=== PATIENT | female | born 1950 | race Caucasian/White ===

== ENCOUNTER 2021-03-07 11:06 | Day surgery (SDC) | payer OTHER ==
[2021-03-07] MEDS ORDERED: ACETAMINOPHEN 325 MG TABLET ONE (12:11)
[2021-03-07] MEDS ORDERED: NA CHLORIDE 0.9% 250 ML ONE ×2 (12:11→15:10)
[2021-03-07] MEDS ORDERED: DIPHENHYDRAMINE 50 MG/ML VIAL ONE (12:11)
[2021-03-07 13:10] VITALS: BMI 24.5
[2021-03-07 16:19] VITALS: TEMP 98.6
[2021-03-07 18:14] LABS: Hematocrit 26.3 % (36.0-45.0)
[2021-03-07 18:18] VITALS: BP 108/57; O2SAT 99
== END 2021-03-07 18:00 | disposition home or self-care (01) ==
LOC: LAB 11:06 → DS 18:00
PROVIDERS: ATTEND Family Medicine
DX: D64.9 Anemia, unspecified (principal)
CPT/HCPCS: 36415; 86900; 86850; 86901; 85018; 85014; 36430; J1200; P9016 ×2; J7050 ×2

== ENCOUNTER 2021-07-26 08:41 | Inpatient (IN) | payer OTHER ==
[2021-07-26 09:26] LABS: Absolute Lymphocytes (CBC) 1.2 K/uL (0.7-4.9); Hematocrit 16.5 % (36.0-45.0); Lymphocytes % 28.1 % (15.3-44.8); RBC Red Blood Cell Count 2.81 M/uL (3.86-4.86)
[2021-07-26] MEDS ORDERED: PANTOPRAZOLE INJ 80 MG in NA CHLORIDE 0.9% 250 ML IV ONE (09:30)
[2021-07-26] MEDS ORDERED: PANTOPRAZOLE 40 MG INJ ONE (09:38)
[2021-07-26 09:39] LABS: ALT/SGPT 22 U/L (12-78); AST/SGOT 12 U/L (15-37); Albumin 3.7 g/dL (3.4-5.0); Alkaline Phosphatase 85 U/L (45-117); BUN Blood Urea Nitrogen 20 mg/dL (7-18); Bicarbonate 27 mmol/L (21-32); Bilirubin Direct < 0.1 mg/dL (0-0.2); Bilirubin Total 0.2 mg/dL (0.2-1.0); Glucose Level 204 mg/dL (74-106); Lipase 225 U/L (73-393); Potassium 4.2 mmol/L (3.5-5.1); Protein, Total 7.7 g/dL (6.4-8.2); Sodium Level 139 mmol/L (136-145)
--- NOTE | 2021-07-26 10:06 | ER ---
Nurse's Notes [facility] Name: Gretchen Orourke Age: 70 yrs Sex: Female : 1950 Arrival Date: 07/26/2021 Time: 08:53 Bed 18 Private MD: Diagnosis: Other specified anemias Presentation: 07/26 08:55 Chief complaint: EMS states: ANEMIA NOTED ON ROUTINE LABS, PT HAS NO COMPLAINT. bp Coronavirus screen: At this time, the client does not indicate any symptoms associated with coronavirus-19. Ebola Screen: No symptoms or risks identified at this time. Initial Sepsis Screen: Does the patient meet any 2 criteria? No. Patient's initial sepsis screen is negative. Does the patient have a suspected source of infection? No. Patient's initial sepsis screen is negative. Risk Assessment: Do you want to hurt yourself or someone else? Patient reports no desire to harm self or others. Onset of symptoms is unknown. 08:55 Method Of Arrival: EMS: [facility] bp 08:55 Acuity: MARILU 3 bp Triage Assessment: 08:56 General: Appears in no apparent distress. comfortable, Behavior is cooperative, bp anxious. Pain: Denies pain. EENT: PALE CONJUNCTIVA. Neuro: No deficits noted. Cardiovascular: No deficits noted. Respiratory: No deficits noted. GI: No signs and/or symptoms were reported involving the gastrointestinal system. Abdomen is non-distended, Abd is soft and non tender X 4 quads. : No signs and/or symptoms were reported regarding the genitourinary system. Derm: Skin is pale. Musculoskeletal: No deficits noted. Historical: - Allergies: 08:56 No Known Allergies; bp - PMHx: 08:56 Hypertensive disorder; Diabetes mellitus; Gout; bp - Immunization history:: Adult Immunizations unknown. - Social history:: Smoking status: Patient denies any tobacco usage or history of. - Family history:: not pertinent. Screenin:59 Abuse screen: Denies threats or abuse. Denies injuries from another. Nutritional bp screening: No deficits noted. Tuberculosis screening: No symptoms or risk factors identified. Fall Risk None identified. Assessment: 08:58 General: SEE TRIAGE NOTE. bp 10:50 Reassessment: No changes from previously documented assessment. Patient and/or family bp updated on plan of care and expected duration. Pain level reassessed. 1ST PRBC REQUESTED. 11:00 Reassessment: No changes from previously documented assessment. Patient and/or family ss7 updated on plan of care and expected duration. Pain level reassessed. PRBC UNIT 1 STARTED. 12:00 Reassessment: PRBC INFUSING. ss7 13:00 Reassessment: PRBC INFUSING. ss7 13:30 Reassessment: No changes from previously documented assessment. Patient and/or family ss7 updated on plan of care and expected duration. Pain level reassessed. 1ST UNIT PRBC COMPLETED. 15:01 Reassessment: REPORT TO 2ND FLOOR FOR RM 223. bp Vital Signs: 08:55 BP 117 / 54; Pulse 81; Resp 12; Temp 98.4; Pulse Ox 100% ; Weight 49.9 kg; Height 5 ft. mb7 0 in. (152.40 cm); 10:00 BP 98 / 46; Pulse 79; Resp 17; Pulse Ox 98% ; bp 11:00 BP 118 / 56; Pulse 76; Resp 20; Temp 98.4; Pulse Ox 100% ; ss7 12:00 BP 113 / 71; Pulse 75; Resp 20; Temp 98.3; Pulse Ox 100% ; ss7 13:00 BP 113 / 54; Pulse 73; Resp 18; Temp 98.4; Pulse Ox 98% ; ss7 13:30 BP 114 / 53; Pulse 71; Resp 18; Temp 98.1; Pulse Ox 99% ; ss7 08:55 Body Mass Index 21.48 (49.90 kg, 152.40 cm) 7 ED Course: 08:53 Patient arrived in ED. bp 08:55 Zack Anguiano, KELLY is Primary Nurse. bp 08:55 Stephan Francis MD is Attending Physician. ma2 08:56 Triage completed. bp 08:56 Arm band placed on. bp 08:59 Patient has correct armband on for positive identification. Bed in low position. Call bp light in reach. Side rails up X2. 09:00 Warm blanket given. telemetry monitor on. Pulse ox on. NIBP on. 5 09:00 Initial lab(s) drawn, by me, sent to lab. Inserted saline lock: 20 gauge in right 5 antecubital area, using aseptic technique. Blood collected. 09:41 Bb Add On Sent. [facility] 09:41 Type And Screen Sent. 5 09:42 Basic Metabolic Panel Sent. 5 09:42 Hepatic Function Sent. 5 09:42 Lipase Sent. 5 09:42 SARS-COV-2 RT PCR (Document "Date of Onset" if Symptomatic) Sent. 5 09:42 EKG done, by ED staff, reviewed by Stephan Francis MD COVID swab sent to lab. T\\T\\S mh5 collected, blood band applied to patient. 10:05 Satya Rowley is Hospitalizing Provider. nm2 10:33 Hospitalizing Provider role handed off by Satya Rowley [facility] 10:33 Stephan Carlos MD is Hospitalizing Provider. ma2 11:20 Inserted saline lock: 20 gauge in left forearm, using aseptic technique. 7 13:43 Inserted saline lock: 20 gauge in right forearm, using aseptic technique. PT ACCIDENTLY ss7 PULLED OUT RAC INT. RFA 20g RESTARTED. IV discontinued, intact. 15:02 No provider procedures requiring assistance completed. bp Administered Medications: 09:15 Drug: Pantoprazole 40 mg Route: IVP; Site: right antecubital; bp 12:33 Follow up: Response: No adverse reaction bp 09:30 Drug: Pantoprazole 8 mg/hr Route: IV; Rate: 25 ml/hr; Site: right antecubital; bp 15:03 Follow up: IV Status: Infusion continued upon admission bp Outcome: 10:05 Decision to Hospitalize by Provider. ma 15:01 Admitted to Med/surg accompanied by tech, via wheelchair, room 223, Report called to bp STERLING 15:01 Condition: stable 15:01 Instructed on the need for admit. 15:12 Patient left the ED. bp Signatures: Florence Tolliver 5 Zack Anguiano, RN RN bp Stephan Francis MD MD ma2 Breneman, Mary mb7 Maria Antonia Bragg, KELLY RN ss7 Corrections: (The following items were deleted from the chart) 13:59 13:58 Reassessment: No changes from previously documented assessment. Patient and/or ss7 family updated on plan of care and expected duration. Pain level reassessed. PRBC UNIT 1 STARTED ss7
--- NOTE | 2021-07-26 10:07 | EDPHYS ---
Physician Documentation [facility] Name: Gretchen Orourke Age: 70 yrs Sex: Female : 1950 Arrival Date: 07/26/2021 Time: 08:53 Bed 18 Private MD: ED Physician Stephan Francis HPI: 07/26 09:06 This 70 yrs old Female presents to ER via EMS with complaints of Abnormal Lab ma2 Results. 09:06 Patient is a resident of correction, history of dementia hypertension diabetes, not ma2 on blood thinners, she was undergoing routine lab work yesterday, was found to have hemoglobin 4.1, patient states she does not have any symptoms, no active bleeding.. Historical: - Allergies: 08:56 No Known Allergies; bp - PMHx: 08:56 Hypertensive disorder; Diabetes mellitus; Gout; bp - Immunization history:: Adult Immunizations unknown. - Social history:: Smoking status: Patient denies any tobacco usage or history of. - Family history:: not pertinent. ROS: 09:06 Constitutional: Negative for fever, chills, and weight loss. ma2 09:06 All other systems are negative. Exam: 09:06 Constitutional: This is a well developed, well nourished patient who is awake, alert, ma2 and in no acute distress. Chest/axilla: Normal chest wall appearance and motion. Nontender with no deformity. No lesions are appreciated. Cardiovascular: Regular rate and rhythm with a normal S1 and S2. No gallops, murmurs, or rubs. Normal PMI, no JVD. No pulse deficits. Respiratory: Lungs have equal breath sounds bilaterally, clear to auscultation and percussion. No rales, rhonchi or wheezes noted. No increased work of breathing, no retractions or nasal flaring. Abdomen/GI: Soft, non-tender, with normal bowel sounds. No distension or tympany. No guarding or rebound. No evidence of tenderness throughout. MS/ Extremity: Pulses equal, no cyanosis. Neurovascular intact. Full, normal range of motion. Neuro: Awake and alert, GCS 15, oriented to person, place, time, and situation. Cranial nerves II-XII grossly intact. Motor strength 5/5 in all extremities. Sensory grossly intact. Cerebellar exam normal. Normal gait. Vital Signs: 08:55 BP 117 / 54; Pulse 81; Resp 12; Temp 98.4; Pulse Ox 100% ; Weight 49.9 kg; Height 5 ft. mb7 0 in. (152.40 cm); 10:00 BP 98 / 46; Pulse 79; Resp 17; Pulse Ox 98% ; bp 11:00 BP 118 / 56; Pulse 76; Resp 20; Temp 98.4; Pulse Ox 100% ; ss7 12:00 BP 113 / 71; Pulse 75; Resp 20; Temp 98.3; Pulse Ox 100% ; ss7 13:00 BP 113 / 54; Pulse 73; Resp 18; Temp 98.4; Pulse Ox 98% ; ss7 13:30 BP 114 / 53; Pulse 71; Resp 18; Temp 98.1; Pulse Ox 99% ; ss7 08:55 Body Mass Index 21.48 (49.90 kg, 152.40 cm) mb7 MDM: 08:59 Patient medically screened. ak2 09:20 ED course: Called package checker on-call Dr. Meade, he was in a procedure ma2 discussed with his nurse practitioner Mee. They will consult on the patient.. 10:04 Differential Diagnosis Differential diagnoses include GI bleeding, anemia of chronic ma2 disease, no active bleeding at this time, hemoglobin 4.7, discussed with Dr. Meade's nurse practitioner. Data reviewed: vital signs, nurses notes, correction records. Counseling: I had a detailed discussion with the patient and/or guardian regarding: the historical points, exam findings, and any diagnostic results supporting the discharge/admit diagnosis, the presence of at least one elevated blood pressure reading (>120/80) during this emergency department visit, the need for outpatient follow up. Response to treatment: the patient's symptoms have markedly improved after treatment. 07/26 09:01 Order name: Basic Metabolic Panel; Complete Time: 10:01 07/26 09:01 Order name: CBC with Diff; Complete Time: 10:01 07/26 09:01 Order name: Hepatic Function; Complete Time: 10:01 07/26 09:01 Order name: Lipase; Complete Time: 10:01 07/26 09:01 Order name: SARS-COV-2 RT PCR (Document "Date of Onset" if Symptomatic) [facility] 07/26 09:15 Order name: Bb Add On ss 07/26 09:26 Order name: Type And Screen bd 07/26 09:56 Order name: Packed RBC Leukored EDSD 07/26 12:29 Order name: CONS Physician Consult [facility] 07/26 12:29 Order name: NPO [facility] 07/26 12:30 Order name: Hematocrit [facility]SD 07/26 12:30 Order name: Hemoglobin [facility] 07/26 09:01 Order name: IV Saline Lock; Complete Time: 09:02 [facility] 07/26 09:01 Order name: Labs collected and sent; Complete Time: 09:02 [facility] 07/26 09:01 Order name: Transfuse: 2 units pRBC. rate 1 unit over 1 hour; Complete Time: 15:03 [facility] 07/26 12:29 Order name: EKG Electrocardiogram [facility] 07/26 12:29 Order name: EKG Electrocardiogram [facility] 07/26 12:29 Order name: EKG Electrocardiogram [facility] 07/26 12:29 Order name: EKG Electrocardiogram [facility] 07/26 12:29 Order name: EKG Electrocardiogram [facility] 07/26 12:30 Order name: EKG Electrocardiogram [facility]SD 07/26 12:30 Order name: EKG Electrocardiogram [facility]SD 07/26 12:30 Order name: EKG Electrocardiogram [facility]SD 07/26 12:30 Order name: EKG Electrocardiogram EDMS 07/26 12:30 Order name: EKG Electrocardiogram [facility] 07/26 12:30 Order name: EKG Electrocardiogram EDSD Administered Medications: 09:15 Drug: Pantoprazole 40 mg Route: IVP; Site: right antecubital; bp 12:33 Follow up: Response: No adverse reaction bp 09:30 Drug: Pantoprazole 8 mg/hr Route: IV; Rate: 25 ml/hr; Site: right antecubital; bp 15:03 Follow up: IV Status: Infusion continued upon admission bp Disposition Summary: 07/26/21 10:05 Hospitalization Ordered Hospitalization Status: Inpatient Admission ma2 Location: Telemetry/MedSurg (Inpatient) ma2 Condition: Stable ma2 Problem: new ma2 Symptoms: are unchanged ma2 Bed/Room Type: Standard ak2 Provider: Stephan Carlos(07/26/21 10:33) ma2 Room Assignment: [facility](07/26/21 13:57) ma2 Diagnosis - Other specified anemias ma2 Forms: - Medication Reconciliation Form ma2 - SBAR form ma2 Signatures: Dispatcher [employer] Zack Thomas RN RN bp Alzahri, Mohammad, MD MD ma2 Corrections: (The following items were deleted from the chart) 10:33 10:05 Satya Rowley ma2 ma2 13:57 10:05 ami2 ma2
[2021-07-26] MEDS ORDERED: NA CHLORIDE 0.9% 250 ML ONE ×2 (10:47→21:22)
[2021-07-26] MEDS ORDERED: MORPHINE 2 MG/ML SYR IV PRN (12:25)
[2021-07-26] MEDS ORDERED: ONDANSETRON 4 MG/2 ML VIAL IV PRN (12:25)
[2021-07-26] MEDS ORDERED: ACETAMINOPHEN 500 MG TAB PO PRN (12:25)
--- NOTE | 2021-07-26 12:50 | P.HP ---
Certification for Inpatient Patient admitted to: Inpatient With expected LOS: >2 Midnights Patient will require the following post-hospital care: None Practitioner: I am a practitioner with admitting privileges, knowledge of patient current condition, hospital course, and medical plan of care. Services: Services provided to patient in accordance with Admission requirements found in Title 42 Section 412.3 of the Code of Federal Regulations Patient History Date of Service: 07/26/21 Reason for admission: Anemia secondary to acute blood loss History of Present Illness: Patient is a 70-year-old female came to the hospital with anemia secondary to acute blood loss. Her hemoglobin is 4.7. Patient lives at the [facility]. She has been anemic for quite a while. Patient apparently has iron deficiency anemia. Patient reticulocyte count was pending. At this time, patient not able to give me much information. We will review her chart and will admit her to the hospital with a GI consultation. She will probably need an EGD and an outpatient colonoscopy. Allergies No Known Allergies Allergy (Verified 03/07/21 12:16) Home Medications: Allopurinol 100 mg PO DAILY 03/07/21 Aspirin [Erlinda Chewable Aspirin] 81 mg PO DAILY 03/07/21 Atorvastatin Calcium [Lipitor] 40 mg PO BEDTIME 03/07/21 Lisinopril [Zestril] 5 gm PO DAILY 03/07/21 Magnesium Oxide [Mag 0X Tab] 400 mg PO BID 03/07/21 Memantine HCl 10 mg PO BID 03/07/21 Metformin HCl [Metformin HCl ER] 500 mg PO BID 03/07/21 Montelukast [Singulair] 10 mg PO DAILY 03/07/21 Sertraline [Zoloft*] 100 mg PO DAILY 03/07/21 Cholecalciferol (Vitamin D3) [Vitamin D3] 125 mcg PO DAILY 07/26/21 Insulin Degludec [Tresiba Flextouch U-200] 30 units SQ DAILY 07/26/21 - Past Medical/Surgical History -: Depression -: Alzheimer's dementia -: Hypertension -: Dyslipidemia -: Gouty arthropathy Past Surgical History: Unable to obtain - Family History Father Family History: Reviewed- Non-Contributory - Social History Smoking Status: Never smoker Alcohol use: No CD- Drugs: No Place of Residence: Shelter Review of Systems 10-point ROS is otherwise unremarkable Physical Examination - Vital Signs Temperature: 98 F Blood Pressure: 100/50 Pulse: 111 Respirations: 22 Pulse Ox (%): 96 - Physical Exam General: Alert, In no apparent distress, Demented HEENT: Atraumatic, PERRLA, Mucous membr. moist/pink, EOMI, Sclerae nonicteric Neck: Supple, 2+ carotid pulse no bruit, No LAD, Without JVD or thyroid abnormality Respiratory: Clear to auscultation bilaterally, Normal air movement Cardiovascular: Regular rate/rhythm, Normal S1 S2 Gastrointestinal: Normal bowel sounds, Soft and benign, Non-distended, No tenderness Musculoskeletal: No tenderness Integumentary: No rashes Neurological: Normal gait, Normal speech, Normal strength at 5/5 x4 extr, Normal tone, Normal affect Lymphatics: No axilla or inguinal lymphadenopathy - Studies Laboratory Data (last 24 hrs) 07/26/21 09:05: WBC 4.40, Hgb 4.7 L*, Hct 16.5 L* D, Plt Count 399 07/26/21 09:05: Sodium 139, Potassium 4.2, BUN 20 H, Creatinine 1.26, Glucose 204 H, Total Bilirubin 0.2, AST 12 L, ALT 22, Alkaline Phosphatase 85, Lipase 225 Assessment & Plan - Problems (Diagnosis) (1) Anemia due to acute blood loss Current Visit: Yes Status: Acute - Plan Plan: 1. Continue with IV hydration and PPI drip 2. Continue with IV antibiotics 3. Continue with pain control 4. NPO 5. GI consultation 6. Serial H&H, and we will monitor LFTs and lipase along with electrolytes. 7. GI and DVT prophylaxis Discharge Plan: Home Plan to discharge in: Greater than 2 days - Advance Directives Does patient have a Living Will: No Does patient have a Durable POA for Healthcare: No - Code Status/Comfort Care Code Status Assessed: Yes Code Status: Full Code Critical Care: No Time Spent Managing PTS Care (In Minutes): 45
[2021-07-26] MEDS ORDERED: NA CHLORIDE 0.9% 250 ML IV SCH (13:00)
[2021-07-26] MEDS: NA CHLORIDE 0.9% 1,000 ML IV SCH (13:00)
[2021-07-26 17:58] VITALS: BMI 21.4
[2021-07-26 21:17] LABS: Hematocrit 20.6 % (36.0-45.0)
[2021-07-27] MEDS: NA CHLORIDE 0.9% 1,000 ML IV SCH ×2 (02:20→11:34)
[2021-07-27 03:26] LABS: Absolute Lymphocytes (CBC) 1.7 K/uL (0.7-4.9); Hematocrit 26.2 % (36.0-45.0); Lymphocytes % 27.8 % (15.3-44.8); MPV 7.1 fL (7.6-11.3); RBC Red Blood Cell Count 3.83 M/uL (3.86-4.86)
[2021-07-27 03:29] LABS: Protime INR 0.98
[2021-07-27 04:00] LABS: Folic Acid, (Folate) 19.1 ng/mL (3.1-17.5)
[2021-07-27 04:08] LABS: Anisocytosis 2+; Blood Morphology Comment NOTED (NOT SEEN); Hypochromasia 2+; Platelet Estimate ADEQ; Polychromasia 2+; White Blood Cell Scan OK (OK)
[2021-07-27] MEDS ORDERED: EPINEPHRINE/PF 1 MG/ML AMP ONE (09:52)
[2021-07-27] MEDS ORDERED: LIDOCAINE 1% MPF 5 ML VIAL ONE (10:30)
[2021-07-27] MEDS ORDERED: propofoL 200 MG/20 ML VIAL IV ONE ×2 (10:30)
[2021-07-27 11:19] VITALS: O2SAT 98
--- NOTE | 2021-07-27 12:29 | P.PN ---
Subjective Date of Service: 07/27/21 Patient status post EGD. Patient with gastritis. Patient does not really have a reticulocyte count. Patient most likely has chronic anemia from iron deficiency as well as possible bone marrow issues. We will replace her iron and we replenish it and she is still remaining anemic then she may need outpatient follow-up with hematology for bone marrow biopsy. Review of Systems is unable to be obtained Physical Examination - Vital Signs Temperature: 98 F Blood Pressure: 100/50 Pulse: 111 Respirations: 22 Pulse Ox (%): 96 - Physical Exam General: Demented, Confused HEENT: Atraumatic, PERRLA, EOMI Neck: Supple, JVD not distended Respiratory: Clear to auscultation bilaterally, Normal air movement Cardiovascular: Regular rate/rhythm, Normal S1 S2 Gastrointestinal: Normal bowel sounds, No tenderness Musculoskeletal: No tenderness Integumentary: No rashes Neurological: Normal speech, Normal tone, Normal affect Lymphatics: No axilla or inguinal lymphadenopathy - Studies Medications List Reviewed: Yes Assessment & Plan - Problems (Diagnosis) (1) Anemia due to acute blood loss Status: Acute - Plan Plan: Continue plan of care as mentioned below: 1. Continue with IV hydration and PPI drip 2. IV iron infusion 3. Continue with pain control 4. Clear liquid diet 5. GI consultation appreciated 6. Serial H&H, and we will monitor LFTs and lipase along with electrolytes. 7. GI and DVT prophylaxis Discharge Plan: Home Plan to discharge in: Greater than 2 days - Advance Directives Does patient have a Living Will: No Does patient have a Durable POA for Healthcare: No - Code Status/Comfort Care Code Status: Full Code Critical Care: No Time Spent Managing PTS Care (In Minutes): 45
[2021-07-27] MEDS ORDERED: CYANOCOBALAMIN 1000MCG/ML INJ IM ONE (12:30)
[2021-07-27] MEDS ORDERED: SOD FERRIC GLUC COMPLX/SUCROSE 125 MG in NA CHLORIDE 0.9% 100 ML IV ONE (13:00)
[2021-07-28] MEDS: NA CHLORIDE 0.9% 1,000 ML IV SCH ×2 (05:00→17:45)
[2021-07-28 06:52] LABS: Absolute Lymphocytes (CBC) 1.1 K/uL (0.7-4.9); Hematocrit 28.5 % (36.0-45.0); Lymphocytes % 15.4 % (15.3-44.8); MPV 8.3 fL (7.6-11.3); RBC Red Blood Cell Count 4.11 M/uL (3.86-4.86)
[2021-07-28] MEDS ORDERED: SOD FERRIC GLUC COMPLX/SUCROSE 250 MG in NA CHLORIDE 0.9% 250 ML IV SCH (09:00)
[2021-07-28 10:12] LABS: Albumin 3.6 g/dL (3.4-5.0); Bilirubin Total 0.4 mg/dL (0.2-1.0); Potassium 3.6 mmol/L (3.5-5.1); Protein, Total 7.3 g/dL (6.4-8.2)
[2021-09-01 11:40] VITALS: BP 100/50; TEMP 98
--- NOTE | 2021-09-01 11:42 | P.PN ---
Date of Service: 07/28/21 Subjective Patient is clinically doing well. Hemoglobin stable. Oral medications. Review of Systems is unable to be obtained Physical Examination - Vital Signs Reviewed - Physical Exam General: Demented, Confused Respiratory: Clear to auscultation bilaterally, Normal air movement Cardiovascular: Regular rate/rhythm, Normal S1 S2 Gastrointestinal: Normal bowel sounds, No tenderness Neurological: Normal speech, Normal tone, Normal affect Assessment & Plan - Problems (Diagnosis) (1) Anemia due to acute blood loss Current Visit: Yes Status: Acute - Plan Plan: Continue plan of care as mentioned below: 1. Continue with IV hydration and PPI 2. IV iron infusion 3. Continue with pain control 4. Clear liquid diet 5. GI consultation appreciated 6. Serial H&H, and we will monitor LFTs and lipase along with electrolytes. 7. GI and DVT prophylaxis
--- NOTE | 2021-09-01 11:43 | P.DS ---
Discharge Date: 07/29/21 Disposition: TRANSFER TO SNF - MEDICAL Discharge Condition: GOOD Reason for Admission: Anemia secondary to acute blood loss - Problems (1) Anemia due to acute blood loss Status: Acute Brief History of Present Illness: Patient is a 70-year-old female came to the hospital with anemia secondary to acute blood loss. Her hemoglobin is 4.7. Patient lives at the [facility]. She has been anemic for quite a while. Patient apparently has iron deficiency anemia. Patient reticulocyte count was pending. At this time, patient not able to give me much information. We will review her chart and will admit her to the hospital with a GI consultation. She will probably need an EGD and an outpatient colonoscopy. Hospital Course: Patient's hemoglobin is stable. Bleeding has stopped. Patient will continue on Protonix and Carafate. At this time, patient is stable for discharge home. Vital Signs/Physical Exam: Temp Pulse Resp BP Pulse Ox 98 F 111 H 22 H 100/50 L 96 09/01/21 11:40 09/01/21 11:40 09/01/21 11:40 09/01/21 11:40 09/01/21 11:40 General: Alert, In no apparent distress, Oriented x3 Laboratory Data at Discharge: WBC Cancelled 07/29/21 05:41 Hgb Cancelled 07/29/21 05:41 Hct Cancelled 07/29/21 05:41 Plt Count Cancelled 07/29/21 05:41 PT 11.3 SECONDS (9.5-12.5) 07/27/21 02:55 INR 0.98 07/27/21 02:55 APTT 30.0 SECONDS (24.3-36.9) 07/27/21 02:55 Sodium Cancelled 07/29/21 05:41 Potassium Cancelled 07/29/21 05:41 BUN Cancelled 07/29/21 05:41 Creatinine Cancelled 07/29/21 05:41 Glucose Cancelled 07/29/21 05:41 Total Bilirubin Cancelled 07/29/21 05:41 AST Cancelled 07/29/21 05:41 ALT Cancelled 07/29/21 05:41 Alkaline Phosphatase Cancelled 07/29/21 05:41 Lipase 225 U/L (73-393) 07/26/21 09:05 Home Medications: Allopurinol 100 mg PO DAILY 03/07/21 Aspirin [Erlinda Chewable Aspirin] 81 mg PO DAILY 03/07/21 Atorvastatin Calcium [Lipitor] 40 mg PO BEDTIME 03/07/21 Lisinopril [Zestril] 5 gm PO DAILY 03/07/21 Magnesium Oxide [Mag 0X*] 400 mg PO BID 03/07/21 Memantine HCl 10 mg PO BID 03/07/21 Metformin HCl [Metformin HCl ER] 500 mg PO BID 03/07/21 Montelukast [Singulair*] 10 mg PO DAILY 03/07/21 Sertraline [Zoloft*] 100 mg PO DAILY 03/07/21 Cholecalciferol (Vitamin D3) [Vitamin D3] 125 mcg PO DAILY 07/26/21 Insulin Degludec [Tresiba Flextouch U-200] 30 units SQ DAILY 07/26/21 Ferrous Sulfate [Ferrous Sulfate Elixir] 5 ml PO TID #500 ml 07/28/21 Pantoprazole [Protonix Tab] 40 mg PO BID #60 tab 07/28/21 Sucralfate [Carafate -Tab] 1 gm PO ACHS #120 tab 07/28/21 New Medications: Sucralfate [Carafate -Tab] 1 gm PO ACHS #120 tab Ferrous Sulfate [Ferrous Sulfate Elixir] 5 ml PO TID #500 ml Pantoprazole [Protonix Tab] 40 mg PO BID #60 tab Physician Discharge Instructions: -DC IV and DC to usp -Follow-up with PCP in 1 to 2 weeks -Follow-up with Cardiology in 1 to 2 weeks -Please call Dr. Carlos at [phone] if any questions regarding hospital stay -Please call nursing station at [phone] if any nursing or medication questions -Return to the emergency room if symptoms worsen Diet: AHA Activity: Fall precautions Followup: [facility] [Provider Group] - 1-2 Weeks (call to schedule an appointment ) Coy Palacios MD [Primary Care Provider] - 1-2 Weeks (call to schedule an appointment ) Time spent managing pt's care (in minutes): 35
--- NOTE | 2021-09-01 16:56 | CON ---
Reason For Consultation: Severe anemia. History Of Presenting Illness: The patient is a 70-year-old woman with a history of chronic anemia, who is a resident of the halfway, who was sent because of hemoglobin of 4.7. History is very di fficult to obtain. There does not seem to be any overt GI bleeding that was seen, specifically durin g her hospitalization. Allergies: NO KNOWN DRUG ALLERGIES. Home Medications: As in the chart. Past Medical History: Depression, Alzheimer, hypertension, dyslipidemia, gout. Past Surgical History: Unable to obtain. Family History: Unable to obtain. Social History: Unable to obtain. Review of Systems: Unable to obtain. Physical Examination: Vital Signs: Reviewed. Temperature 98, blood pressure 100/50, pulse 88, respiratory rate 22. HEENT: Head atraumatic, normocephalic. Pupils equally reactive. Neck: Supple. Chest: Bilateral air entry. Abdomen: Soft, nontender, nondistended. Bowel sounds present. Extremities: No pedal edema. Laboratory Data: Reviewed. The patient seems to have only received 2 units and hemoglobin seems to have improved already to be 8.8. Impression: A 70-year-old woman, halfway resident, who has a history of chronic anemia, now pre sents with severe anemia without any overt or active GI bleeding. Hemoglobin appears to be stable af ter transfusion. Plan: Continue current management. We will schedule the patient for an upper endoscopy to rule out any upper GI source. If source is found, it will be treated. If no source is found and if the H and H remain stable during the hospitalization, further workup including colonoscopy can be undertaken a s on outpatient basis. /JV Voice ID: [id number] Report ID: [id number]
--- NOTE | 2021-09-01 23:33 | OP ---
Surgeon: You Ash MD Procedure Performed: Esophagogastroduodenoscopy. Indication For Procedure: Acute anemia, rule out gastrointestinal source of bleeding. Technique: After obtaining informed consent from the patient and quality audit representative explaining risks and complications including bleeding, perforation, anesthesia complication, she was placed in the left l ateral position. Sedation was given. From then on, the scope was advanced into the mouth and carefu lly guided up to the third portion of the duodenum. No evidence of active bleeding was seen. The sc ope carefully withdrawn while carefully examining the mucosa. Findings: Esophagus, small hiatal hernia seen in the distal esophagus. Stomach: [id number] patchy erythema seen with few erosions in the body. Biopsies taken. Duodenum: No significant abnormality seen in the entire examined duodenum. Complications: None. Estimated Blood Loss: Minimal. Tolerance To Anesthesia: Excellent. Postoperative Diagnosis: 1.Erosive gastritis. 2.Hiatal hernia. Plan: 1.Await pathology results. 2.Oral PPI. 3.Continue to monitor hemoglobin, if it remained stable, the patient can be followed up in the clini as an outpatient. Instructions will be given by the primary team to the nursing facility, so that she can undergo a colonoscopy. US/MODL Voice ID: [id number] Report ID: [id number]
== END 2021-07-29 00:16 | DRG 812 ==
LOC: ER 08:41 → ERHOLD 12:33 → 2ND 15:00
PROVIDERS: ADMIT Hospitalist; ATTEND Hospitalist
PROC: 0DB68ZX Excision of Stomach, Via Natural or Artificial Opening Endoscopic, Diagnostic (ICD-10-PCS; principal; 2021-07-26)
PROC: 30233N1 Transfusion of Nonautologous Red Blood Cells into Peripheral Vein, Percutaneous Approach (ICD-10-PCS; 2021-07-26)
DX: D62 Acute posthemorrhagic anemia (principal); K29.00 Acute gastritis without bleeding; K44.9 Diaphragmatic hernia without obstruction or gangrene; G30.9 Alzheimer's disease, unspecified; F02.80 Dementia in other diseases classified elsewhere, unspecified severity, without behavioral disturbance, psychotic disturbance, mood disturbance, and anxiety; I10 Essential (primary) hypertension; E78.5 Hyperlipidemia, unspecified; M10.9 Gout, unspecified; Z20.822 Contact with and (suspected) exposure to COVID-19
CPT/HCPCS: 36415; 80048; 80053; 80076; 82306; 82607; 82746; 82947; 83036; 83540; 83690; 84439; 84443; 85014; 85018; 85025; 85044; 85610; 85730; 86850; 86900; 86901; 88305; 88312; 96365; 96366; 99285; C9113; J0171; J2704; J2916; J3420; J7030; J7050; P9016; U0003

== ENCOUNTER 2022-09-26 06:34 | Inpatient (IN) | payer OTHER ==
[2022-09-26 06:58] LABS: Absolute Lymphocytes (CBC) 1.1 K/uL (0.7-4.9); Hematocrit 37.7 % (36.0-45.0); Lymphocytes % 8.8 % (15.3-44.8); MCV 87.9 fL (80-100); MPV 7.7 fL (7.6-11.3); RBC Red Blood Cell Count 4.29 M/uL (3.86-4.86)
[2022-09-26 07:07] LABS: Protime INR 1.05
[2022-09-26 07:15] LABS: Albumin 3.5 g/dL (3.4-5.0); Bilirubin Total 0.6 mg/dL (0.2-1.0); Potassium 4.1 mEq/L (3.5-5.1); Protein, Total 7.6 g/dL (6.4-8.2)
[2022-09-26] MEDS ORDERED: NA CHLORIDE 0.9% 500 ML ONE (07:35)
--- NOTE | 2022-09-26 07:37 | RAD REPORT ---
EXAM DESCRIPTION: CT - Head Brain Wo Cont - 09/26/2022 7:17 am CLINICAL HISTORY: AMS;Confused COMPARISON: Head angio dated 09/20/2018; Head angio dated 07/01/2018; Head C Spine Mpr Wo Con dated TECHNIQUE: Noncontrast head CT images ad were obtained without IV contrast. Multiplanar reformats we re generated and reviewed. All CT scans are performed using dose optimization technique as appropriate and may include automated exposure control or mA/KV adjustment according to patient size. FINDINGS: No intracranial hemorrhage, mass, or edema. Midline structures are unremarkable. Moderate diffuse parenchymal loss. Additional severe white matter atrophic changes in the left fronta l and parietal regions. Appearance is stable compared to be 09/16/2022 exam. Periventricular confluent hypodensity, could be related to advanced chronic small vessel ischemic rob nges, favored over hydrocephalus. Maier-white matter differentiation is preserved, without evidence of acute infarct. No abnormal extra- axial fluid collections. Mastoid air cells and visualized portions of the paranasal sinuses are clear. No acute bony findings. IMPRESSION: No evidence of an acute intracranial process. Stable findings including advanced parenchymal atrophic changes, asymmetric on the left, as well as p eriventricular confluent hypodensities, favored to represent advanced chronic small vessel ischemic c hanges.
[2022-09-26] MEDS ORDERED: CEFTRIAXONE 1000 MG/VIAL ONE (07:55)
[2022-09-26 08:03] LABS: Specific Gravity 1.022 (1.005-1.030); Urine Bacteria 20-50 /HPF (<20); Urine Bilirubin NEGATIVE (Negative); Urine Blood Negative (Negative); Urine Clarity Turbid (Clear); Urine Color Yellow (Yellow); Urine Glucose 2+ (Negative); Urine Mucus Slight /HPF (None Seen); Urine Protein TRACE (Negative); Urine RBC 21-50 /HPF (None Seen); Urine Urobilinogen Normal (Normal); Urine pH 6.5 (5.0-7.0)
--- NOTE | 2022-09-26 08:29 | ER ---
Nurse's Notes [facility] Name: Gretchen Orourke Age: 71 yrs Sex: Female : 1950 Arrival Date: 09/26/2022 Time: 06:34 Bed 19 Private MD: Diagnosis: Severe sepsis without septic shock;UTI/ Urinary tract infection, site not specified;Altered mental status, unspecified Presentation: 09/26 06:37 Chief complaint: EMS states: called out for altered mental status. correction reports as6 pt is normally altered but she is not herself "she normally has happy eyes". Coronavirus screen: At this time, the client does not indicate any symptoms associated with coronavirus-19. Ebola Screen: No symptoms or risks identified at this time. Initial Sepsis Screen: Does the patient meet any 2 criteria? Altered Mental Status. HR > 90 bpm. Yes Does the patient have a suspected source of infection? No. Patient's initial sepsis screen is negative. Risk Assessment: Do you want to hurt yourself or someone else? Patient reports no desire to harm self or others. Onset of symptoms is unknown. 06:37 Method Of Arrival: EMS: [facility] as6 06:37 Acuity: MARILU 2 as6 Historical: - Allergies: 06:42 No Known Allergies; as6 - PMHx: 06:42 diabetes mellitus; Gout; Hypertensive disorder; Dementia; as6 - Immunization history:: Adult Immunizations up to date. - Social history:: Smoking status: Patient denies any tobacco usage or history of. Screenin:43 Abuse screen: Denies threats or abuse. Denies injuries from another. Nutritional as6 screening: No deficits noted. Tuberculosis screening: No symptoms or risk factors identified. 13:35 [facility] ED Fall Risk Assessment (Adult) History of falling in the last 3 months, ko1 including since admission Yes- fall prone (multiple falls) (3 pts) Confusion or Disorientation Yes (5 pts) Intoxicated or Sedated No (0 pts) Impaired Gait Yes (1 pt) Mobility Assist Device Used Yes (1 pt) Altered Elimination Yes (1 pt) Score/Fall Risk Level 3 or more points = High Risk Oriented to surroundings, Maintained a safe environment, Educated pt \\T\\ family on fall prevention, incl call for assistance when getting out of bed, Assessed \\T\\ reinforced patient's understanding of fall precautions, Provided non-skid footwear, Hourly rounding (assess needs \\T\\ fall precautionary measures) done, Used ambulatory aids as needed (educated on \\T\\ assisted with), Used gait belt as appropriate Implemented a Fall Risk Plan of Care, Apply high fall risk patient identification: yellow non skid footwear/ fall signage, Placed fall mat w/ non beveled edge next to bed, Remained with patient while ambulating, Utilized family, sitter, or virtual ornamental metalwork designer as indicated. Assessment: 07:56 General: Appears in no apparent distress. Behavior is calm, cooperative. Pain: Unable hb to use pain scale. nonverbal, responds to pain. Neuro: Level of Consciousness is awake, alert, unresponsive, Oriented to none. Cardiovascular: Patient's skin is warm and dry. Respiratory: Respiratory effort is even, unlabored, Respiratory pattern is regular, symmetrical. GI: No signs and/or symptoms were reported involving the gastrointestinal system. : No signs and/or symptoms were reported regarding the genitourinary system. EENT: No signs and/or symptoms were reported regarding the EENT system. Derm: Skin is pink, warm \\T\\ dry. Musculoskeletal: No signs and/or symptoms reported regarding the musculoskeletal system. Vital Signs: 06:37 BP 151 / 85; Pulse 135; Resp 18 S; Temp 99.2(O); Pulse Ox 94% on R/A; Weight 45.5 kg as6 (M); 07:45 BP 126 / 70; Pulse 116; Resp 21; Pulse Ox 97% on R/A; hb 08:31 BP 129 / 68; Pulse 114; Resp 15; Pulse Ox 97% on R/A; hb ED Course: 06:37 Patient arrived in ED. as6 06:42 Triage completed. as6 06:43 Arm band placed on. as6 06:43 Placed in gown. Bed in low position. Call light in reach. Side rails up X2. Client as6 placed on continuous cardiac and pulse oximetry monitoring. NIBP monitoring applied. 06:44 Marina Beatty, RN is Primary Nurse. lg3 06:44 Maintain EMS IV. Dressing intact. Good blood return noted. Site clean \\T\\ dry. Gauge \\T\\ as 6 site: 20g LAC. 06:47 Zan Ding MD is Attending Physician. kdr 06:51 CBC with Diff Sent. lg3 06:51 CMP Sent. lg3 06:51 Lactate w/ 2H reflex if indic. Sent. lg3 06:51 Protime (+inr) Sent. lg3 06:51 Ptt, Activated Sent. lg3 07:13 Attending Physician role handed off by Zan Ding MD ms3 07:13 Juan Maria DO is Attending Physician. ms3 07:17 CT Head Brain wo Cont In Process Unspecified. EDMS 08:19 CXR XRAY In Process Unspecified. EDMS 08:28 Joey Chauhan MD is Hospitalizing Provider. ms3 13:34 No provider procedures requiring assistance completed. ko1 13:43 Patient admitted, IV remains in place. ko1 Administered Medications: 07:48 Drug: NS 0.9% IV 500 ml Route: IV; Rate: bolus; Site: left antecubital; hb 07:59 Drug: Rocephin IV 1 grams Route: IV; Rate: calculated rate; Site: left antecubital; hb Medication: 07:59 VIS not applicable for this client. hb Outcome: 08:28 Decision to Hospitalize by Provider. ms3 14:06 Admitted to Tele accompanied by tech, via stretcher, room 218, with chart. ko1 14:06 Condition: stable 14:06 Instructed on the need for admit. 14:31 Patient left the ED. iw Signatures: Dispatcher [employer] EDMS Zan Ding MD MD [facility] Idania Ball RN RN Es Jones, RN RN Marina Beatty RN RN lg3 Juan Maria DO DO ms3 Tc Turk RN RN as6 Bryanna Haskins RN RN ko1
--- NOTE | 2022-09-26 08:29 | EDPHYS ---
Physician Documentation [facility] Name: Gretchen Orourke Age: 71 yrs Sex: Female : 1950 Arrival Date: 09/26/2022 Time: 06:34 Bed 19 Private MD: ED Physician Juan Maria HPI: 09/26 07:47 This 71 yrs old Female presents to ER via EMS with complaints of AMS. ms3 07:47 71-year-old female with past medical history of diabetes, gout, hypertension, dementia ms3 presents from a nursing facility for decreased responsiveness and verbal responses. Patient is nonverbal at baseline and history and physical are limited. Patient's is at bedside and states he has noticed patient to be less responsive over the last 2 days.. Historical: - Allergies: 06:42 No Known Allergies; as6 - PMHx: 06:42 diabetes mellitus; Gout; Hypertensive disorder; Dementia; as6 - Immunization history:: Adult Immunizations up to date. - Social history:: Smoking status: Patient denies any tobacco usage or history of. ROS: 07:47 Unable to obtain ROS due to baseline dementia. ms3 Exam: 07:47 Constitutional: This is a well developed, well nourished patient who is awake, alert, ms3 and in no acute distress. Head/Face: Normocephalic, atraumatic. Neck: Trachea midline, no cervical lymphadenopathy. Supple, full range of motion without nuchal rigidity, or vertebral point tenderness. No Meningismus. Chest/axilla: Normal chest wall appearance and motion. Nontender with no deformity. 07:47 Cardiovascular: Rate: tachycardic, Rhythm: regular, Pulses: no pulse deficits are appreciated, Heart sounds: normal, normal S1and S2. 07:51 ECG was reviewed by the Attending Physician. ms3 Vital Signs: 06:37 BP 151 / 85; Pulse 135; Resp 18 S; Temp 99.2(O); Pulse Ox 94% on R/A; Weight 45.5 kg as6 (M); 07:45 BP 126 / 70; Pulse 116; Resp 21; Pulse Ox 97% on R/A; hb 08:31 BP 129 / 68; Pulse 114; Resp 15; Pulse Ox 97% on R/A; hb MDM: 07:13 Patient medically screened. ms3 07:47 Differential Diagnosis altered mental status, sepsis, UTI vs PNA. ms3 08:26 ED course: Patient meets severe sepsis criteria at this time. Patient's source UTI. ms3 SIRS criteria heart rate greater than 90, respiratory rate greater than 20, white blood count greater than 12. End organ dysfunction: Lactic acid greater than 2. Blood cultures obtained prior to administering Rocephin. Second lactic acid pending at this time.. 08:28 Data reviewed: vital signs, nurses notes, lab test result(s), radiologic studies, CT ms3 scan, plain films, and as a result, I will admit patient. Consideration of Admission/Observation Patient was admitted/placed on observation. Management of patient was discussed with the following: Hospitalist: Discussed case with JAYESH Worthy, with Dr Chauhan and he accepts patient on behalf of Dr Chauhan.. I considered the following discharge prescriptions or medication management in the emergency department Medications were administered in the Emergency Department. See MAR. Independent interpretation of the following test(s) in the Emergency Department CT Scan: My interpretation is CT head images reviewed and no SDH visualized.. Historians other than the Patient: Spouse/Significant Other: Patient's . Counseling: I had a detailed discussion with the patient and/or guardian regarding: the historical points, exam findings, and any diagnostic results supporting the discharge/admit diagnosis, lab results, radiology results, the need for further work-up and treatment in the hospital. ED course: Discussed labs and necessity for admission with patient's . He understands agrees with plan. All questions were answered. Patient remains in stable condition in the emergency department. 09/26 06:45 Order name: Blood Culture Adult (2) 09/26 06:45 Order name: CBC with Diff; Complete Time: 07:13 09/26 06:45 Order name: CMP; Complete Time: 07:40 09/26 06:45 Order name: Lactate w/ 2H reflex if indic.; Complete Time: 07:40 09/26 06:45 Order name: Protime (+inr); Complete Time: 07:13 09/26 06:45 Order name: Ptt, Activated; Complete Time: 07:13 09/26 06:45 Order name: Urinalysis w/ reflexes; Complete Time: 08:18 09/26 07:11 Order name: Glucose, Ancillary Testing; Complete Time: 07:13 EDMS 09/26 08:06 Order name: Urine Culture EDMT 09/26 12:15 Order name: Glucose, Ancillary Testing EDMT 09/26 13:22 Order name: Lactate Sepsis 2 HR Follow-up EDMT 09/26 06:49 Order name: CT Head Brain wo Cont; Complete Time: 07:40 kdr 09/26 07:46 Order name: CXR XRAY; Complete Time: 08:58 ms3 09/26 06:45 Order name: EKG; Complete Time: 06:45 09/26 06:45 Order name: Accucheck; Complete Time: 07:05 6 09/26 06:45 Order name: Cardiac monitoring; Complete Time: 06:50 09/26 06:45 Order name: Cath; Complete Time: 07:48 as6 09/26 06:45 Order name: EKG - Nurse/Tech; Complete Time: 06:50 09/26 06:45 Order name: IV Saline Lock - Large Bore; Complete Time: 06:45 09/26 06:45 Order name: Labs collected and sent; Complete Time: 07:05 09/26 06:45 Order name: O2 Per Protocol; Complete Time: 06:45 09/26 06:45 Order name: O2 Sat Monitoring; Complete Time: 06:45 09/26 06:45 Order name: Vital Signs; Complete Time: 06:45 EC:51 Rate is 127 beats/min. Rhythm is regular. QRS [place] is Normal. QRS interval is normal. ms3 QT interval is normal. Clinical impression: Sinus tachycardia. Interpreted by me. Reviewed by me. Administered Medications: 07:48 Drug: NS 0.9% IV 500 ml Route: IV; Rate: bolus; Site: left antecubital; hb 07:59 Drug: Rocephin IV 1 grams Route: IV; Rate: calculated rate; Site: left antecubital; hb Disposition: 08:34 Chart complete. ms3 Disposition Summary: 09/26/22 08:28 Hospitalization Ordered Hospitalization Status: Inpatient Admission ms3 Provider: Joey Chauhan ms3 Condition: Stable ms3 Problem: new ms3 Symptoms: are unchanged ms3 Bed/Room Type: Standard ms3 Location: Telemetry/MedSurg (Inpatient)(09/26/22 13:22) dw Room Assignment: 218(09/26/22 13:22) dw Diagnosis - Severe sepsis without septic shock ms3 - UTI/ Urinary tract infection, site not specified ms3 - Altered mental status, unspecified ms3 Discharge Instructions: - Discharge Summary Sheet lg3 Forms: - SBAR form lg3 - Medication Reconciliation Form ms3 Critical care time excluding procedures: 08:34 Critical care time: Bedside Care: 30 minutes, Consultation: 5 minutes, Family ms3 Intervention: 5 minutes. Total time: 40 minutes Signatures: Dispatcher [employer] Sary Waller RN RN dw Zan Ding MD MD [facility] Es Jones RN RN Tess Clayton kj1 Juan Maria DO DO ms3 Tc Turk RN RN as6 Corrections: (The following items were deleted from the chart) 10:37 08:28 Telemetry/MedSurg (Inpatient) ms3 kj1 10:37 08:28 ms3 kj1 13:22 10:37 [facility] ER HOLD kj1 dw 13:22 10:37 kj1 dw
--- NOTE | 2022-09-26 08:46 | RAD REPORT ---
EXAM DESCRIPTION: Unruly Single View09/26/2022 8:17 am CLINICAL HISTORY: ams COMPARISON: No comparisons TECHNIQUE: Portable AP view of the chest. FINDINGS: No pneumothorax. Blunting of the left costophrenic angle which may relate to pleural thick ening or trace effusion. Right lung is clear. The cardiomediastinal contours are unremarkable. IMPRESSION: Left costophrenic angle blunting which may relate to pleural thickening or trace effusio n.
[2022-09-26] MEDS ORDERED: ACETAMINOPHEN 325 MG TABLET PO PRN (09:57)
[2022-09-26] MEDS ORDERED: ONDANSETRON 4 MG/2 ML VIAL IV PRN (10:09)
[2022-09-26] MEDS ORDERED: SODIUM CHLORIDE 0.9% 10ML INJ IV PRN (10:10)
[2022-09-26] MEDS ORDERED: LABETALOL 20 MG/4ML SYRINGE IV PRN (10:12)
--- NOTE | 2022-09-26 10:13 | P.HP ---
Certification for Inpatient Patient admitted to: Inpatient With expected LOS: >2 Midnights Patient will require the following post-hospital care: None Practitioner: I am a practitioner with admitting privileges, knowledge of patient current condition, hospital course, and medical plan of care. Services: Services provided to patient in accordance with Admission requirements found in Title 42 Section 412.3 of the Code of Federal Regulations Patient History Date of Service: 09/26/22 Reason for admission: AMS, History of Present Illness: Patient is a 71-year-old female with a past medical history significant for DM 2, hypertension, dementia, gout who presents with complaint of decreased responsiveness. Patient is nonverbal and a resident of a fci. Nursing staff noted that patient is less responsive than her baseline for the past 2 days. Patient noted with sutures to her right eyebrow status post fall last week. No other signs and symptoms reported. Symptoms are aggravated or relieved by nothing. Patient was brought to the hospital for medical evaluation. Allergies No Known Allergies Allergy (Verified 03/07/21 12:16) Home Medications: Allopurinol 100 mg PO DAILY 03/07/21 Aspirin [Erlinda Chewable Aspirin] 81 mg PO DAILY 03/07/21 Atorvastatin Calcium [Lipitor] 40 mg PO BEDTIME 03/07/21 Lisinopril [Zestril] 5 gm PO DAILY 03/07/21 Magnesium Oxide [Mag 0X*] 400 mg PO BID 03/07/21 Memantine HCl 10 mg PO BID 03/07/21 Metformin HCl [Metformin HCl ER] 500 mg PO BID 03/07/21 Montelukast [Singulair*] 10 mg PO DAILY 03/07/21 Sertraline [Zoloft*] 100 mg PO DAILY 03/07/21 Cholecalciferol (Vitamin D3) [Vitamin D3] 125 mcg PO DAILY 07/26/21 Insulin Degludec [Tresiba Flextouch U-200] 30 units SQ DAILY 07/26/21 Ferrous Sulfate [Ferrous Sulfate Elixir] 5 ml PO TID #500 ml 07/28/21 Pantoprazole [Protonix Tab] 40 mg PO BID #60 tab 07/28/21 Sucralfate [Carafate -Tab] 1 gm PO ACHS #120 tab 07/28/21 - Past Medical/Surgical History Diabetic: No -: Depression -: Alzheimer's dementia -: Hypertension -: Dyslipidemia -: Gouty arthropathy Past Surgical History: Unable to obtain - Family History Family History: Reviewed- Non-Contributory - Social History Smoking Status: Never smoker Alcohol use: No CD- Drugs: No Caffeine use: No Place of Residence: [facility] Review of Systems is unable to be obtained (Unable to obtain. Patient is nonverbal) Physical Examination - Physical Exam General: Alert, In no apparent distress, Cooperative, Demented HEENT: Atraumatic, PERRLA, Mucous membr. moist/pink, EOMI, Sclerae nonicteric Neck: Supple, 2+ carotid pulse no bruit, No LAD, Without JVD or thyroid abnormality Respiratory: Clear to auscultation bilaterally, Normal air movement Cardiovascular: No edema, Normal S1 S2, Other (Tachycardia ) Capillary refill: <2 Seconds Gastrointestinal: Normal bowel sounds, Soft and benign, No tenderness Musculoskeletal: No clubbing, No swelling, No tenderness Integumentary: No rashes, No breakdown, No significant lesion, No tenderness/swelling Neurological: Normal speech, Normal tone, Normal affect Lymphatics: No axilla or inguinal lymphadenopathy - Studies Laboratory Data (last 24 hrs) 09/26/22 06:50: PT 11.6, INR 1.05, APTT 29.9 09/26/22 06:50: Sodium 136, Potassium 4.1, BUN 18, Creatinine 1.28 H, Glucose 253 H, Total Bilirubin 0.6, AST 12 L, ALT 23, Alkaline Phosphatase 109 09/26/22 06:50: WBC 12.70 H, Hgb 12.4, Hct 37.7, Plt Count 278 Assessment and Plan - Plan -- Severe sepsis without septic shock. Likely secondary to UTI. Blood cultures pending. Continue antibiotics. -- UTI POA. Continue antibiotics. Urine cultures pending. --Acute encephalopathy. Likely secondary to UTI. CT head does not indicate any acute intracranial abnormality. Continue supportive care. --DM 2 with hyperglycemia. BS monitoring with sliding scale insulin. -- Alzheimer's dementia. Patient less responsive compared to her baseline per spouse and [facility] staff report. Delirium likely secondary to UTI. Continue home medications. --Hypertension. Poorly controlled. Continue home medications and labetalol as needed. --Gout. Continue allopurinol. --Hyperlipidemia. Continue statin. --IVETH. Continue ferrous sulfate. --GERD. Continue Protonix and Carafate. --Depression. Continue home medication. --DVT prophylaxis with Lovenox subQ. Discharge Plan: Home Plan to discharge in: Greater than 2 days - Advance Directives Does patient have a Living Will: No Does patient have a Durable POA for Healthcare: No - Code Status/Comfort Care Code Status Assessed: Yes Physician Review: Patient Assessed, Agree with Above Assessment and Plan Critical Care: No
[2022-09-26] MEDS: PANTOPRAZOLE 40 MG INJ IVP SCH (10:25)
[2022-09-26] MEDS ORDERED: PANTOPRAZOLE 40 MG INJ ONE (10:28)
[2022-09-26] MEDS ORDERED: GLUCAGON 1 MG/VIAL IM PRN (11:18)
[2022-09-26] MEDS ORDERED: D50W 25 GM/50 ML SYRINGE IV PRN (11:18)
[2022-09-26] MEDS ORDERED: D10W 125 ML IV PRN (11:23)
[2022-09-26] MEDS: INSULIN -REGULAR HUMAN 50 UNIT/0.5 ML ML SQ SCH ×3 (11:30→21:00)
[2022-09-26 15:56] LABS: Magnesium 1.9 mg/dL (1.6-2.4); Phosphorus 2.7 mg/dL (2.5-4.9); Thyroid Stimulating Hormone 0.864 uIU/mL (0.358-3.740)
[2022-09-26 18:05] VITALS: BMI 19.5
--- NOTE | 2022-09-26 22:18 | RAD REPORT ---
EXAM DESCRIPTION: RAD - Humerus Right - 09/26/2022 10:12 pm CLINICAL HISTORY: Pain, Swelling COMPARISON: <Comparisons> FINDINGS: Diffuse osteopenia is seen. No acute fracture or dislocation.
--- NOTE | 2022-09-26 22:19 | RAD REPORT ---
EXAM DESCRIPTION: RAD - Forearm Right - 09/26/2022 10:12 pm CLINICAL HISTORY: Pain, Swelling COMPARISON: <Comparisons> FINDINGS: Diffuse osteopenia is seen. No acute fracture or dislocation seen.
[2022-09-27 03:45] LABS: Absolute Lymphocytes (CBC) 2.2 K/uL (0.7-4.9); Hematocrit 34.3 % (36.0-45.0); Lymphocytes % 18.2 % (15.3-44.8); MPV 8.6 fL (7.6-11.3); RBC Red Blood Cell Count 3.95 M/uL (3.86-4.86)
[2022-09-27 03:59] LABS: Potassium 3.5 mEq/L (3.5-5.1)
--- NOTE | 2022-09-27 04:52 | EKG ---
Test Date: 2022-09-26 Test Time: 06:45:14 E Learning Manager: KOLTON MEASUREMENT RESULTS: Intervals: Rate: 127 FL: QRSD: 76 QT: 390 QTc: 566 [place]: P: FL: QRS: 106 T: 81 INTERPRETIVE STATEMENTS: Accelerated Junctional rhythm Possible Right ventricular hypertrophy Nonspecific T wave abnormality Abnormal ECG Compared to ECG 07/26/2021 09:12:55 Accelerated junctional rhythm now present T-wave abnormality now present Sinus rhythm no longer present Myocardial infarct finding no longer present Electronically Signed On 09-27-22 04:52:01 CDT by Rupesh Pimentel
[2022-09-27] MEDS ORDERED: KCL 20 MEQ/100 mL IVPB 20 MEQ/100 ML BAG IV SCH (05:00)
[2022-09-27] MEDS: NA CHLORIDE 0.9% 1,000 ML IV SCH ×3 (05:26→22:23)
--- NOTE | 2022-09-27 06:57 | P.PN ---
Date of Service: 09/27/22 Subjective: appears more alert, responsive per family swelling in right hand slightly improved per nurses; pain worsens when straining hand -since fall 1 week ago not swallowing as much over last ~3 months; holding food in mouth -approximate 25 pound weight loss in the last month family feels cough is worse today afebrile ROS: 10 point ROS as noted above, otherwise negative Physical Exam: GEN: Alert, nonverbal, dementia, HEENT: Normal conjunctiva, sclera anicteric CV: Regular rate and rhythm, no edema Pulm: Nonlabored respirations on room air, +cough ABD: Soft, nontender, nondistended MSK: right hand swelling, no tenderness on palpation of hand/wrist, withdraws due to pain when extending fingers Neuro: nonverbal, tracking movement, not completely following commands vitals reviewed Problem List: Severe sepsis without septic shock secondary to UTI Acute encephalopathy, metabolic Cough, concern for Aspiration DM 2 with hyperglycemia Vascular and Alzheimer's dementia, end stage Hypertension Gout Depression Severe sepsis without septic shock Acute metabolic encephalopathy UTI CT head does not indicate any acute intracranial abnormality Likely secondary to UTI Blood cultures pending Follow urine culture Mentation seems to be improving UTI Urine cultures prelim 100,000 CFU/ML, +4GNR Continue antibiotics Concern for Aspiration Patients family reports that patient has had some difficulty swallowing over the last month. States she isn't chewing as much and holding food in mouth. Family report patient has been coughing the last 2 days Notable for the last responsiveness/alertness in the last 2 days, no evidence of aspiration pneumonia on imaging at this point Speech therapy consult DM 2 with hyperglycemia BS monitoring with sliding scale insulin Vascular and Alzheimer's dementia; end stage Appears to be worsening over the last few months Continue home medications Hypertension - Continue home medications and labetalol as needed Gout - Continue allopurinol Hyperlipidemiam - Continue statin IVETH - Continue ferrous sulfate GERD - Continue Protonix and Carafate Depression - Continue home medication VTE: Lovenox subQ Code: DNR Dispo: senior care 2-3 days Discussed with daughters at bedside, it appears patient has been having worsening of her dementia/quality of life/functional ability 25 pound weight loss in the last month due to decreased oral intake. The daughters were discussed before and would not want to pursue any feeding tube Patient verbalized several months has not been recognizing family members, becoming more weak, eating, and now getting infections Discussed patient's prior diagnosis of vascular dementia and what they are describing is consistent with worsening of her dementia Hospice, for Would like to receive more information to make a more informed decision.
[2022-09-27] MEDS: INSULIN -REGULAR HUMAN 50 UNIT/0.5 ML ML SQ SCH ×4 (07:30→21:00)
[2022-09-27] MEDS ORDERED: CEFTRIAXONE 1,000 MG in NA CHLORIDE 0.9% 50 ML IVPB SCH (09:00)
[2022-09-27] MEDS: HOME MED 1 EA UNK (Insulin Degludec [Tresiba Flextouch U-200] 200 UNIT/ML Insuln.Pen) SQ SCH (09:00)
[2022-09-27] MEDS: PANTOPRAZOLE 40 MG INJ IVP SCH (09:11)
[2022-09-27] MEDS: ASPIRIN 81 MG CHEWABLE TABLET PO SCH (09:11)
[2022-09-27] MEDS: ENOXAPARIN 40 MG/0.4 ML SQ SCH (09:12)
[2022-09-28 03:35] LABS: Absolute Lymphocytes (CBC) 1.6 K/uL (0.7-4.9); Hematocrit 32.1 % (36.0-45.0); Lymphocytes % 22.3 % (15.3-44.8); MCV 86.3 fL (80-100); MPV 7.9 fL (7.6-11.3); RBC Red Blood Cell Count 3.72 M/uL (3.86-4.86)
[2022-09-28 03:47] LABS: Potassium 3.7 mEq/L (3.5-5.1)
[2022-09-28] MEDS ORDERED: KCL 20 MEQ/100 mL IVPB 20 MEQ/100 ML BAG IV SCH (06:00)
[2022-09-28] MEDS: INSULIN -REGULAR HUMAN 50 UNIT/0.5 ML ML SQ SCH ×4 (07:30→21:00)
--- NOTE | 2022-09-28 07:40 | P.PN ---
Date of Service: 09/28/22 Subjective: Patients daughters feel cough is worse, worsened after eating/drinking stable, afebrile no new symptoms ROS: 10 point ROS as noted above, otherwise negative Physical Exam: GEN: Alert, nonverbal, dementia HEENT: Normal conjunctiva, sclera anicteric CV: Regular rate and rhythm, no edema Pulm: Nonlabored respirations on room air, +cough ABD: Soft, nontender, nondistended MSK: right hand swelling, no tenderness on palpation of hand/wrist, withdraws due to pain when extending fingers Neuro: nonverbal, tracking movement, not completely following commands vitals reviewed Problem List: Severe sepsis without septic shock secondary to UTI Acute encephalopathy, metabolic UTI - E. coli Esbl Cough, concern for Aspiration DM 2 with hyperglycemia Vascular and Alzheimer's dementia, end stage Hypertension Gout Depression Severe sepsis without septic shock Acute metabolic encephalopathy CT head does not indicate any acute intracranial abnormality Likely secondary to UTI Blood cultures pending Mentation seems to be improving UTI - E. coli Esbl Urine cultures 09/28 growing E. coli Esbl Continue antibiotics - switched to meropenem 09/28 Concern for Aspiration Patients family reports that patient has had some difficulty swallowing over the last month. States she isn't chewing as much and holding food in mouth. Family report patient has been coughing the last 2 days Notable for the last responsiveness/alertness in the last 2 days, no evidence of aspiration pneumonia on imaging at this point Speech therapy consult DM 2 with hyperglycemia BS monitoring with sliding scale insulin Vascular and Alzheimer's dementia; end stage Appears to be worsening over the last few months Continue home medications Hypertension - Continue home medications and labetalol as needed Gout - Continue allopurinol Hyperlipidemiam - Continue statin IVETH - Continue ferrous sulfate GERD - Continue Protonix and Carafate Depression - Continue home medication VTE: Lovenox subQ Code: DNR Dispo: jail 2-3 days Discussed with daughters at bedside, it appears patient has been having worsening of her dementia/quality of life/functional ability 25 pound weight loss in the last month due to decreased oral intake. The daughters were discussed before and would not want to pursue any feeding tube Patient verbalized several months has not been recognizing family members, becoming more weak, eating, and now getting infections Discussed patient's prior diagnosis of vascular dementia and what they are describing is consistent with worsening of her dementia Family should have more answers after meeting with sw this morning
[2022-09-28] MEDS: HOME MED 1 EA UNK (Insulin Degludec [Tresiba Flextouch U-200] 200 UNIT/ML Insuln.Pen) SQ SCH (08:30)
[2022-09-28] MEDS: PANTOPRAZOLE 40 MG INJ IVP SCH (08:47)
[2022-09-28] MEDS: Meropenem 1,000 MG in NA CHLORIDE 0.9% 100 ML IV SCH ×2 (08:48→20:03)
[2022-09-28] MEDS: ASPIRIN 81 MG CHEWABLE TABLET PO SCH (08:48)
[2022-09-28] MEDS: NA CHLORIDE 0.9% 1,000 ML IV SCH ×2 (08:48→20:04)
[2022-09-28] MEDS: ENOXAPARIN 40 MG/0.4 ML SQ SCH (08:48)
[2022-09-28 16:19] LABS: Specific Gravity 1.015 (1.005-1.030); Urine Bilirubin NEGATIVE (Negative); Urine Blood Negative (Negative); Urine Clarity Clear (Clear); Urine Color Light-Yellow (Yellow); Urine Glucose NEGATIVE (Negative); Urine Protein NEGATIVE (Negative); Urine Urobilinogen Normal (Normal)
[2022-09-29 03:54] LABS: Potassium 3.7 mEq/L (3.5-5.1)
[2022-09-29] MEDS ORDERED: KCL 20 MEQ/100 mL IVPB 20 MEQ/100 ML BAG IV SCH (05:00)
--- NOTE | 2022-09-29 07:13 | P.PN ---
Date of Service: 09/29/22 Subjective: Feels about the same as yesterday cough remains unchanged stable ROS: 10 point ROS as noted above, otherwise negative Physical Exam: GEN: Alert, nonverbal, dementia HEENT: Normal conjunctiva, sclera anicteric CV: Regular rate and rhythm, no edema Pulm: Nonlabored respirations on room air, +cough ABD: Soft, nontender, nondistended MSK: right hand swelling, no tenderness on palpation of hand/wrist, withdraws due to pain when extending fingers Neuro: nonverbal, tracking movement, not completely following commands vitals reviewed Problem List: Severe sepsis without septic shock secondary to UTI Acute encephalopathy, metabolic UTI - E. coli Esbl Cough, concern for Aspiration DM 2 with hyperglycemia Vascular and Alzheimer's dementia, end stage Hypertension Gout Depression Severe sepsis without septic shock Acute metabolic encephalopathy CT head does not indicate any acute intracranial abnormality Likely secondary to UTI Blood cultures pending Mentation seems to be improving UTI - E. coli Esbl Urine cultures 09/28 growing E. coli Esbl Continue antibiotics - switched to meropenem 09/28 Concern for Aspiration Patients family reports that patient has had some difficulty swallowing over the last month. States she isn't chewing as much and holding food in mouth. Family report patient has been coughing the last 2 days Notable for the last responsiveness/alertness in the last 2 days, no evidence of aspiration pneumonia on imaging at this point Speech therapy consult DM 2 with hyperglycemia BS monitoring with sliding scale insulin Vascular and Alzheimer's dementia; end stage Appears to be worsening over the last few months Continue home medications Hypertension - Continue home medications and labetalol as needed Gout - Continue allopurinol Hyperlipidemiam - Continue statin IVETH - Continue ferrous sulfate GERD - Continue Protonix and Carafate Depression - Continue home medication VTE: Lovenox subQ Code: DNR Dispo: Hospice Discussed with daughters at bedside, it appears patient has been having worsening of her dementia/quality of life/functional ability 25 pound weight loss in the last month due to decreased oral intake. The daughters were discussed before and would not want to pursue any feeding tube Patient verbalized several months has not been recognizing family members, becoming more weak, eating, and now getting infections Discussed patient's prior diagnosis of vascular dementia and what they are describing is consistent with worsening of her dementia Waiting for Hospice approval
[2022-09-29] MEDS: INSULIN -REGULAR HUMAN 50 UNIT/0.5 ML ML SQ SCH ×2 (07:30→11:30)
[2022-09-29] MEDS ORDERED: Meropenem 1000 MG/VIAL IV ONE (07:47)
[2022-09-29] MEDS: Meropenem 1,000 MG in NA CHLORIDE 0.9% 100 ML IV SCH ×2 (08:34→08:47)
[2022-09-29] MEDS: PANTOPRAZOLE 40 MG INJ IVP SCH (08:34)
[2022-09-29] MEDS: ASPIRIN 81 MG CHEWABLE TABLET PO SCH (08:35)
[2022-09-29] MEDS: ENOXAPARIN 40 MG/0.4 ML SQ SCH (08:35)
[2022-09-29] MEDS: HOME MED 1 EA UNK (Insulin Degludec [Tresiba Flextouch U-200] 200 UNIT/ML Insuln.Pen) SQ SCH (08:35)
[2022-09-29 08:45] VITALS: BP 129/68; TEMP 97.5
[2022-09-29] MEDS ORDERED: NA CHLORIDE 0.9% 100 ML ONE (08:51)
[2022-09-29] MEDS: NA CHLORIDE 0.9% 1,000 ML IV SCH (10:20)
[2022-09-29 10:53] VITALS: O2SAT 96
--- NOTE | 2022-09-30 07:04 | P.DS ---
Admission Date: 09/26/22 Discharge Date: 09/29/22 Disposition: HOSPICE-MEDICAL FACILITY Reason for Admission: AMS, Brief History of Present Illness: 71yo F, PMH: DM 2, hypertension, dementia, gout Patient presented to the emergency department with complaint of decreased responsiveness. Patient is nonverbal and a [place]. Nursing staff noted that patient is less responsive than her baseline for the past 2 days. Patient noted with sutures to her right eyebrow status post fall last week. No other signs and symptoms reported. Symptoms are aggravated or relieved by nothing. Patient was brought to the hospital for medical evaluatio n. Hospital Course: Problem List: Severe sepsis without septic shock secondary to UTI Acute encephalopathy, metabolic UTI - E. coli Esbl Cough, concern for Aspiration DM 2 with hyperglycemia Vascular and Alzheimer's dementia, end stage Hypertension Gout Depression Physical Exam: GEN: Alert, nonverbal, dementia HEENT: Normal conjunctiva, sclera anicteric CV: Regular rate and rhythm, no edema Pulm: Nonlabored respirations on room air, +cough ABD: Soft, nontender, nondistended MSK: right hand swelling, no tenderness on palpation of hand/wrist, withdraws due to pain when extending fingers Neuro: nonverbal, tracking movement, not completely following commands Vital Signs/Physical Exam: Temp Pulse Resp BP Pulse Ox 97.5 F 72 16 129/68 96 09/29/22 08:00 09/29/22 08:00 09/29/22 08:00 09/29/22 08:00 09/29/22 08:00 Laboratory Data at Discharge: WBC 7.10 thou/uL (4.3-10.9) 09/28/22 02:51 Hgb 10.8 g/dL (12.0-15.0) L 09/28/22 02:51 Hct 32.1 % (36.0-45.0) L 09/28/22 02:51 Plt Count 254 thou/uL (152-406) 09/28/22 02:51 PT 11.6 SECONDS (9.5-12.5) 09/26/22 06:50 INR 1.05 09/26/22 06:50 APTT 29.9 SECONDS (24.3-36.9) 09/26/22 06:50 Sodium 138 mEq/L (136-145) 09/29/22 03:00 Potassium 3.7 mEq/L (3.5-5.1) 09/29/22 03:00 BUN 15 mg/dL (7-18) 09/29/22 03:00 Creatinine 0.88 mg/dL (0.55-1.02) 09/29/22 03:00 Glucose 98 mg/dL (74-106) 09/29/22 03:00 Phosphorus 2.7 mg/dL (2.5-4.9) 09/26/22 15:14 Magnesium 1.9 mg/dL (1.6-2.4) 09/26/22 15:14 Total Bilirubin 0.6 mg/dL (0.2-1.0) 09/26/22 06:50 AST 12 U/L (15-37) L 09/26/22 06:50 ALT 23 U/L (13-56) 09/26/22 06:50 Alkaline Phosphatase 109 U/L (45-117) 09/26/22 06:50 Home Medications: Allopurinol 100 mg PO DAILY 03/07/21 Aspirin [Erlinda Chewable Aspirin] 81 mg PO DAILY 03/07/21 Atorvastatin Calcium [Lipitor] 40 mg PO BEDTIME 03/07/21 Lisinopril [Zestril] 5 gm PO DAILY 03/07/21 Metformin HCl [Metformin HCl ER] 500 mg PO BID 03/07/21 Montelukast [Singulair*] 10 mg PO BEDTIME 03/07/21 Insulin Degludec [Tresiba Flextouch U-200] 30 units SQ DAILY 07/26/21 Ferrous Sulfate [Ferrous Sulfate Elixir] 7 ml PO DAILY 09/26/22 Followup: Unknown,U [Primary Care Provider] - (call to schedule an appointment) Time spent managing pt's care (in minutes): 45
== END 2022-09-29 15:46 | disposition hospice, inpatient (51) | DRG 871 ==
LOC: ER 06:34 → ERHOLD 09:56 → 2ND 14:23
PROVIDERS: ADMIT Hospitalist; ATTEND Hospitalist
DX: A41.51 Sepsis due to Escherichia coli [E. coli] (principal); E43 Unspecified severe protein-calorie malnutrition; G93.41 Metabolic encephalopathy; R53.2 Functional quadriplegia; Z68.1 Body mass index [BMI] 19.9 or less, adult; N39.0 Urinary tract infection, site not specified; F05 Delirium due to known physiological condition; F02.83 Dementia in other diseases classified elsewhere, unspecified severity, with mood disturbance; Z16.12 Extended spectrum beta lactamase (ESBL) resistance; G30.9 Alzheimer's disease, unspecified; R65.20 Severe sepsis without septic shock; E11.65 Type 2 diabetes mellitus with hyperglycemia; E78.5 Hyperlipidemia, unspecified; K21.9 Gastro-esophageal reflux disease without esophagitis; F01.50 Vascular dementia, unspecified severity, without behavioral disturbance, psychotic disturbance, mood disturbance, and anxiety; M10.9 Gout, unspecified; D50.9 Iron deficiency anemia, unspecified; I10 Essential (primary) hypertension; Z66 Do not resuscitate; Z79.4 Long term (current) use of insulin; Z79.82 Long term (current) use of aspirin; Z79.84 Long term (current) use of oral hypoglycemic drugs; Z79.899 Other long term (current) drug therapy
CPT/HCPCS: 36415; 70450; 71045; 80048; 80053; 81001; 81003; 82947; 83605; 83735; 84100; 84439; 84443; 85025; 85610; 85730; 87040; 87077; 87086; 87088; 87186; 92610; 93005; 96374; 99285; C9113; J0696; J1650; J1815; J2185; J3480; J7030; J7040